=== PATIENT | male | born 1950 | race Caucasian/White ===

== ENCOUNTER 2017-04-29 05:14 | Inpatient (IN) | payer OTHER ==
[~2017-04-29] VITALS: Ht 180.3 cm; Wt 145.3 kg
[~2017-04-29 05:14] MED LIST: CARB200T4 PO
[2017-04-29 06:30] LABS: Basophils # (auto) 0 uL; Basophils % (auto) 0.5 % (0.0-2.0); Eosinophils # (auto) 0 uL; Eosinophils % (auto) 0.1 % (0.0-7.0); Hematocrit 34.1 % (41.0-53.0); Hemoglobin 11.4 g/dL (13.5-17.5); Lymphocytes # (auto) 0.4 uL; Lymphocytes % (auto) 4.8 % (10.0-50.0); Mean Corpuscular Hemoglobin 31.4 pg (28.0-32.0); Mean Corpuscular Hgb Conc. 33.4 g/dL (32.0-36.0); Mean Corpuscular Volume 94.1 fL (80.0-100.0); Mean Platelet Volume 7.9 fL (6.9-10.8); Monocytes # (auto) 0.6 uL; Monocytes % (auto) 6.8 % (0.0-12.0); Neutrophils # (auto) 7.3 uL; Neutrophils % (auto) 87.8 % (37.0-80.0); Nucleated Red Blood Cells % 0.1 %; Platelet Count (auto) 251 10^3/uL (140-450); Red Cell Distribution Width 18.8 % (11.8-14.3); White Blood Cell 8.3 10^3/uL (4.4-10.8)
[2017-04-29 06:38] LABS: INR 1.05 (0.9-1.15); Partial Thromboplastin Time 31.6 sec (22.64-33.71); Prothrombin Time 11.4 sec (9.37-12.3)
[2017-04-29] MEDS ORDERED: FUROSEMIDE 20 MG/2 ML VIAL IV ONE (06:45)
[2017-04-29 06:57] LABS: Albumin 1.6 g/dL (3.4-5.0); BUN/Creatinine Ratio 20.3; Bilirubin, Total 0.6 mg/dL (0.2-1.0); Calcium 8.7 mg/dL (8.5-10.1); Potassium 3.6 mmol/L (3.5-5.1); Total Protein 6.9 g/dL (6.4-8.2)
[2017-04-29 07:15] LABS: B-Type Natriuretic Peptide 140.82 pg/mL (0-100)
[2017-04-29 07:24] LABS: Temperature: 21.3 C (20.0-25.0)
[2017-04-29 07:34] LABS: Urine RBC None Seen /hpf (0 - 3)
[2017-04-29] MEDS ORDERED: ENOXAPARIN SOD 100 MG/1 ML SYRINGE SC ONE (07:45)
[2017-04-29 08:26] LABS: Urine Bilirubin Negative (Negative); Urine Blood TRACE /uL (Negative); Urine Color Yellow (Yellow); Urine Glucose Normal (Normal); Urine Ketone Negative (Negative); Urine Mucus FEW (None Seen); Urine Nitrite Negative (Negative); Urine Squamous Epithelial Cell FEW /hpf (<5); Urine Urobilinogen Normal (Negative); Urine pH 5.5 (5.0-8.0)
[2017-04-29] MEDS ORDERED: ONDANSETRON HCL 4 MG/2 ML VIAL IV PRN (09:15)
[2017-04-29] MEDS ORDERED: NITROGLYCERIN 0.4 MG SL TAB SL PRN ×2 (09:15)
[2017-04-29] MEDS ORDERED: ZOLPIDEM TARTRATE 5 MG TAB PO PRN (09:15)
[2017-04-29] MEDS ORDERED: ALUM & MAG HYDROX-SIMETH LIQ(MAALOX) 30 ML PO ONE (09:15)
[2017-04-29] MEDS ORDERED: LORazepam 0.5 MG TAB PO PRN (09:15)
[2017-04-29] MEDS ORDERED: MORPHINE SULF INJ 2 MG/ML SYRINGE 1ML IV PRN ×3 (09:15→09:45)
[2017-04-29] MEDS ORDERED: VANCOMYCIN PER PHARMACY 0 MG IV SCH (09:30)
[2017-04-29] MEDS ORDERED: cefTRIAXone 1GM/50ML D5W 50 ML IV ONE (09:30)
[2017-04-29] MEDS ORDERED: HYDROcodone-ACET 5/325MG TAB PO PRN (09:45)
[2017-04-29] MEDS: ZINC SULFATE 220 MG CAP PO SCH (09:53)
[2017-04-29] MEDS: ASPirin 81 mg TAB PO SCH (09:53)
[2017-04-29] MEDS: FAMOTIDINE 20 MG TAB PO SCH ×2 (09:54→22:48)
[2017-04-29] MEDS: POTASSIUM CHL 10 Meq TABLET PO SCH ×2 (09:54→22:48)
[2017-04-29] MEDS: MULTIPLE VITAMIN TAB PO SCH (09:54)
[2017-04-29] MEDS: CARVEDILOL 3.125 MG TAB PO SCH ×2 (09:54→22:47)
[2017-04-29] MEDS: ASCORBIC ACID 500 MG TAB PO SCH ×2 (09:55→22:48)
[2017-04-29] MEDS: carBAMazepine 200 MG TAB PO SCH ×2 (09:55→22:48)
[2017-04-29] MEDS: ENALAPRIL MALEATE 2.5 MG TAB PO SCH ×2 (09:55→22:48)
[2017-04-29] MEDS ORDERED: ENOXAPARIN SOD 100 MG/1 ML SYRINGE SC SCH (10:00)
[2017-04-29] MEDS ORDERED: CLOPIDOGREL BISULFATE 75 MG TAB PO SCH (10:00)
[2017-04-29] MEDS: DOCUSATE SOD 100 MG CAP PO SCH (10:36)
[2017-04-29] MEDS: VANCOMYCIN 1GM/250ML D5W 250 ML IV SCH ×2 (10:36→19:01)
[2017-04-29] MEDS: SODIUM CHLOR 0.9% PF (SALINE LOCK) 10ML VIAL IV SCH ×2 (11:48→21:27)
[2017-04-29] MEDS: BOOST PLUS 8 ounce PO SCH ×3 (12:14→21:27)
[2017-04-29] MEDS: FUROSEMIDE 40 MG/4 ML VIAL IV SCH (17:30)
[2017-04-29 20:05] LABS: Cholesterol 108 mg/dL (< 200); HDL Cholesterol 22 mg/dL (40-59); LDL Cholesterol 81 mg/dL (< 100); Triglycerides 115 mg/dL (< 150)
[2017-04-29 20:22] LABS: Temperature: 23.7 C (20.0-25.0)
[2017-04-29] MEDS: ENOXAPARIN SOD 150 MG/1 ML SYRINGE SC SCH (20:27)
[2017-04-29] MEDS: ATORVASTATIN 20 MG TAB PO SCH (22:48)
[2017-04-30] MEDS: VANCOMYCIN 1GM/250ML D5W 250 ML IV SCH (04:00)
[2017-04-30 04:22] LABS: Basophils # (auto) 0 uL; Basophils % (auto) 0.6 % (0.0-2.0); Eosinophils # (auto) 0 uL; Eosinophils % (auto) 0.4 % (0.0-7.0); Hematocrit 36.4 % (41.0-53.0); Lymphocytes # (auto) 0.5 uL; Mean Corpuscular Hemoglobin 31.2 pg (28.0-32.0); Mean Corpuscular Hgb Conc. 32.9 g/dL (32.0-36.0); Mean Corpuscular Volume 94.9 fL (80.0-100.0); Monocytes # (auto) 0.5 uL; Nucleated Red Blood Cells % 0.1 %; Platelet Count (auto) 250 10^3/uL (140-450); Red Cell Distribution Width 19.5 % (11.8-14.3)
[2017-04-30 04:48] LABS: Albumin 1.6 g/dL (3.4-5.0); BUN/Creatinine Ratio 19.8; Bilirubin, Total 0.6 mg/dL (0.2-1.0); Calcium 8.8 mg/dL (8.5-10.1); Magnesium 1.9 mg/dL (1.6-2.6); Potassium 3.2 mmol/L (3.5-5.1); Total Protein 7.2 g/dL (6.4-8.2)
[2017-04-30] MEDS: FUROSEMIDE 40 MG/4 ML VIAL IV SCH (06:10)
[2017-04-30] MEDS: SODIUM CHLOR 0.9% PF (SALINE LOCK) 10ML VIAL IV SCH ×3 (06:13→22:15)
[2017-04-30] MEDS ORDERED: POTASSIUM CHL 20 Meq TABLET PO ONE (07:15)
[2017-04-30] MEDS: ENOXAPARIN SOD 150 MG/1 ML SYRINGE SC SCH (07:49)
[2017-04-30] MEDS: BOOST PLUS 8 ounce PO SCH ×4 (08:28→22:00)
[2017-04-30] MEDS ORDERED: cefTRIAXone 1GM/50ML D5W 50 ML IV SCH (09:00)
[2017-04-30] MEDS: carBAMazepine 200 MG TAB PO SCH ×2 (10:49→22:17)
[2017-04-30] MEDS: MULTIPLE VITAMIN TAB PO SCH (10:49)
[2017-04-30] MEDS: ZINC SULFATE 220 MG CAP PO SCH (10:49)
[2017-04-30] MEDS: CARVEDILOL 3.125 MG TAB PO SCH ×2 (10:49→22:00)
[2017-04-30] MEDS: DOCUSATE SOD 100 MG CAP PO SCH (10:49)
[2017-04-30] MEDS: ASCORBIC ACID 500 MG TAB PO SCH ×2 (10:49→22:17)
[2017-04-30] MEDS: POTASSIUM CHL 10 Meq TABLET PO SCH ×2 (10:49→22:17)
[2017-04-30] MEDS: ASPirin 81 mg TAB PO SCH (10:49)
[2017-04-30] MEDS: FAMOTIDINE 20 MG TAB PO SCH ×2 (10:49→22:17)
[2017-04-30] MEDS: ENALAPRIL MALEATE 2.5 MG TAB PO SCH ×2 (10:49→22:00)
[2017-04-30] MEDS ORDERED: POTASSIUM CHL 10% (20 MEQ/15ML) 15ml ORAL SOLN PO ONE (12:15)
[2017-04-30] MEDS ORDERED: POTASSIUM CHL 20MEQ/100ML 100 ML IV ONE (12:15)
[2017-04-30] MEDS: FOLIC ACID 1 MG TAB PO SCH ×2 (13:15→13:38)
[2017-04-30] MEDS ORDERED: VANCOMYCIN 1GM/250ML D5W 250 ML IV SCH (15:00)
[2017-04-30 18:15] VITALS: BP 92/57
[2017-04-30 20:00] VITALS: BP 111/52
[2017-04-30 20:06] LABS: BUN/Creatinine Ratio 17.2; Potassium 3.8 mmol/L (3.5-5.1)
[2017-04-30] MEDS: ATORVASTATIN 20 MG TAB PO SCH (22:17)
[2017-05-01] MEDS ORDERED: VANCOMYCIN 1GM/250ML D5W 250 ML IV SCH
[2017-05-01] MEDS: SODIUM CHLOR 0.9% PF (SALINE LOCK) 10ML VIAL IV SCH ×3 (05:44→22:03)
[2017-05-01] MEDS: BOOST PLUS 8 ounce PO SCH ×4 (05:44→22:03)
[2017-05-01 08:24] LABS: Basophils # (auto) 0.1 uL; Basophils % (auto) 0.8 % (0.0-2.0); Eosinophils # (auto) 0 uL; Eosinophils % (auto) 0.5 % (0.0-7.0); Hematocrit 32.5 % (41.0-53.0); Hemoglobin 10.9 g/dL (13.5-17.5); Lymphocytes # (auto) 0.6 uL; Lymphocytes % (auto) 6.7 % (10.0-50.0); Mean Corpuscular Hemoglobin 31.2 pg (28.0-32.0); Mean Corpuscular Hgb Conc. 33.4 g/dL (32.0-36.0); Mean Corpuscular Volume 93.4 fL (80.0-100.0); Mean Platelet Volume 7.9 fL (6.9-10.8); Monocytes # (auto) 0.6 uL; Monocytes % (auto) 6.3 % (0.0-12.0); Neutrophils # (auto) 7.7 uL; Neutrophils % (auto) 85.7 % (37.0-80.0); Platelet Count (auto) 122 10^3/uL (140-450); Red Cell Distribution Width 18.8 % (11.8-14.3)
[2017-05-01 08:36] LABS: INR 1.05 (0.9-1.15); Partial Thromboplastin Time 33.8 sec (22.64-33.71); Prothrombin Time 11.4 sec (9.37-12.3)
[2017-05-01 08:39] LABS: BUN/Creatinine Ratio 21.3; Calcium 8.8 mg/dL (8.5-10.1); Magnesium 1.8 mg/dL (1.6-2.6); Potassium 3.6 mmol/L (3.5-5.1)
[2017-05-01 09:00] VITALS: BP 120/66
[2017-05-01] MEDS: FOLIC ACID 1 MG in D5W 5% 50 ML IV SCH (10:00)
[2017-05-01 10:22] LABS: Hepatitis B Surface Antibody Negative
[2017-05-01] MEDS: ASPirin 81 mg TAB PO SCH (11:43)
[2017-05-01] MEDS: MULTIPLE VITAMIN TAB PO SCH (11:43)
[2017-05-01] MEDS: DOCUSATE SOD 100 MG CAP PO SCH (11:45)
[2017-05-01] MEDS: POTASSIUM CHL 10 Meq TABLET PO SCH ×2 (11:46→22:16)
[2017-05-01] MEDS: CARVEDILOL 3.125 MG TAB PO SCH ×2 (11:46→22:00)
[2017-05-01] MEDS: carBAMazepine 200 MG TAB PO SCH ×2 (11:47→22:16)
[2017-05-01] MEDS: ASCORBIC ACID 500 MG TAB PO SCH ×2 (11:47→22:16)
[2017-05-01] MEDS: ENALAPRIL MALEATE 2.5 MG TAB PO SCH ×2 (11:48→22:00)
[2017-05-01] MEDS: FAMOTIDINE 20 MG TAB PO SCH ×2 (11:49→22:16)
[2017-05-01 13:00] VITALS: BP 109/56
[2017-05-01 17:00] VITALS: BP 88/50
[2017-05-01 22:12] VITALS: BP 100/54
[2017-05-01] MEDS: ATORVASTATIN 20 MG TAB PO SCH (22:16)
[2017-05-02 05:42] VITALS: BP 123/72
[2017-05-02] MEDS: SODIUM CHLOR 0.9% PF (SALINE LOCK) 10ML VIAL IV SCH (06:28)
[2017-05-02] MEDS: BOOST PLUS 8 ounce PO SCH ×2 (08:00→12:00)
[2017-05-02 10:00] VITALS: BP 99/50
[2017-05-02] MEDS: ENALAPRIL MALEATE 2.5 MG TAB PO SCH (10:00)
[2017-05-02] MEDS: CARVEDILOL 3.125 MG TAB PO SCH (10:00)
[2017-05-02] MEDS: FOLIC ACID 1 MG in D5W 5% 50 ML IV SCH (10:00)
[2017-05-02] MEDS: POTASSIUM CHL 10 Meq TABLET PO SCH (10:38)
[2017-05-02] MEDS: ASPirin 81 mg TAB PO SCH (10:38)
[2017-05-02] MEDS: FAMOTIDINE 20 MG TAB PO SCH (10:39)
[2017-05-02] MEDS: MULTIPLE VITAMIN TAB PO SCH (10:39)
[2017-05-02] MEDS: ASCORBIC ACID 500 MG TAB PO SCH (10:39)
[2017-05-02] MEDS: carBAMazepine 200 MG TAB PO SCH (10:39)
[2017-05-02] MEDS: DOCUSATE SOD 100 MG CAP PO SCH (10:40)
[2017-05-02 16:19] VITALS: BP 99/50
== END 2017-05-02 18:30 | DRG 871 ==
LOC: EDBD 05:14 → ER 05:21 → TELE 05:22 → DOU IN ICU 04-30 18:00 → TELE-WESTW 05-01 00:22
PROVIDERS: ADMIT Internal Medicine; ATTEND Internal Medicine
DX: A41.9 Sepsis, unspecified organism (principal); I21.4 Non-ST elevation (NSTEMI) myocardial infarction; E43 Unspecified severe protein-calorie malnutrition; E11.42 Type 2 diabetes mellitus with diabetic polyneuropathy; E87.1 Hypo-osmolality and hyponatremia; I11.0 Hypertensive heart disease with heart failure; I48.92 Unspecified atrial flutter; I48.91 Unspecified atrial fibrillation; I50.9 Heart failure, unspecified; Z68.42 Body mass index [BMI] 45.0-49.9, adult; G81.91 Hemiplegia, unspecified affecting right dominant side; W06.XXXA Fall from bed, initial encounter; G25.81 Restless legs syndrome; D63.8 Anemia in other chronic diseases classified elsewhere; E66.01 Morbid (severe) obesity due to excess calories; E78.5 Hyperlipidemia, unspecified; G40.909 Epilepsy, unspecified, not intractable, without status epilepticus; E53.8 Deficiency of other specified B group vitamins; R04.0 Epistaxis; I25.10 Atherosclerotic heart disease of native coronary artery without angina pectoris; M19.90 Unspecified osteoarthritis, unspecified site; Z82.0 Family history of epilepsy and other diseases of the nervous system; Z79.82 Long term (current) use of aspirin; Z79.899 Other long term (current) drug therapy; Z88.8 Allergy status to other drugs, medicaments and biological substances; I25.2 Old myocardial infarction; Z86.73 Personal history of transient ischemic attack (TIA), and cerebral infarction without residual deficits; Y93.89 Activity, other specified; Y92.89 Other specified places as the place of occurrence of the external cause; Y99.8 Other external cause status; Z87.828 Personal history of other (healed) physical injury and trauma
CPT/HCPCS: 36415; 51702; 70450; 71010; 80048; 80053; 80061; 80202; 81001; 82607; 82746; 82962; 83735; 83880; 84484; 85025; 85610; 85730; 86703; 86706; 86803; 87040; 87081; 87086; 87340; 92610; 93005; 93306; 93886; 93970; 95819; 96372; 96374; 97110; 97530; J0696; J3480; J7060